=== PATIENT | male | born 1950 | race Caucasian/White ===

== ENCOUNTER 2024-07-23 06:21 | Day surgery (SDC) | payer OTHER, SELFPAY | END 2024-07-23 11:36 | disposition home or self-care (01) | LOC: GI 06:21 | PROVIDERS: ATTENDING PHYSICIAN Internal Medicine Gastroenterology | DX: Z12.11 Encounter for screening for malignant neoplasm of colon (principal); K63.5 Polyp of colon; K57.30 Diverticulosis of large intestine without perforation or abscess without bleeding; K64.0 First degree hemorrhoids; Z86.0100 Personal history of colon polyps, unspecified | CPT/HCPCS: 45380; 88305 ==

== ENCOUNTER 2024-12-09 17:59 | Emergency (ER) | payer OTHER, SELFPAY ==
[2024-12-09 18:01] VITALS: BP 168/100
[2024-12-09 18:18] LABS: % Basophils 0.4 % (0-2); % Eosinophils 1.8 % (0-6); % Immature Granulocytes 0.4 % (0-0.5); % Lymphocytes 26.1 % (20.5-51.1); % Monocytes 7.8 % (1.7-9.3); % Neutrophils 63.5 % (42.2-75.2); Absolute Eosinophils 0.1 10^3/uL (0-0.7); Absolute Monocytes 0.6 10^3/uL (0.1-0.6); Absolute Neutrophils 4.8 10^3/uL (1.4-6.5); Hematocrit 37.5 % (39.0-52.0); Hemoglobin 13.2 g/dL (13.0-18.0); Mean Corp Hgb Conc. 35.2 g/dL (33.0-37.0); Mean Corpuscular Hgb 32.7 pg (27.0-31.0); Mean Corpuscular Volume 92.8 fL (80.0-94.0); Mean Platelet Volume 9.3 fL (7.4-10.4); Nucleated Red Blood Cells % 0 % (-); Platelet Count 208 10^3/uL (130-400); Red Blood Cell Count 4.04 10^6/uL (4.70-6.10); Red Cell Dist. Width 13.2 % (11.5-14.5); White Blood Cell Count 7.6 10^3/uL (4.8-10.8)
[2024-12-09 18:25] VITALS: BMI 24.2
[2024-12-09 18:35] LABS: ALT (SGPT) 15 U/L (0-50); AST (SGOT) 25 U/L (17-59); Albumin 3.7 g/dl (3.5-5.0); Alkaline Phosphatase 69 U/L (38-126); Blood Urea Nitrogen 22 mg/dl (9-20); Calcium 8.4 mg/dl (8.4-10.2); Carbon Dioxide 24 mmol/L (22-30); Chloride 114 mmol/L (98-107); Estimated Creatinine Clearance 50 ml/min; Glucose 112 mg/dl (70-99); Lipase 213 U/L (23-300); Potassium 4.3 mmol/L (3.5-5.1); Sodium 141 mmol/L (135-145); Total Bilirubin 0.5 mg/dl (0.2-1.3); Total Protein 6.4 g/dl (6.3-8.2); eGFR > 60.00
[2024-12-09 19:48] VITALS: BP 171/84
[2024-12-09 19:55] LABS: Urine Albumin 4+ (Neg - Trace); Urine Bilirubin Negative (Negative); Urine Character Slightly Cloudy (Clear); Urine Color Yellow; Urine Glucose Negative (Negative); Urine Ketone Negative (Negative); Urine Leukocyte Negative (Negative); Urine Nitrite Negative (Negative); Urine Occult Blood 3+ (Negative); Urine Urobilinogen Negative (Neg - 1+)
[2024-12-09 20:06] LABS: Urine Amorphous Seen
[2024-12-09 20:07] LABS: Urine Bacteria Few (Negative)
[2024-12-09 20:42] VITALS: BP 157/91
--- NOTE | 2024-12-09 20:56 | ED.GENMED ---
History of Present Illness
General
Chief Complaint: Abdominal Pain
Source: patient and spouse
Time Seen by Provider: 12/09/24 19:24
History of Present Illness
History of Present Illness:
74-year-old male who presents after he had a 'lump' and pain in his right groin. Patient states it has been coming and going over some months but today it seemed to persist despite ibuprofen. The patient states he now feels much better and the
lump is gone. He states he does sometimes feel his left side as well. No vomiting. No fevers. No dysuria.
Past History
Past History
ED Past Medical History: CAD, Hypercholesterolemia and AL
ED Past Surgical History: Orthopedic
Social History
Tobacco: Former smoker
Phy Exam
Physical Exam
Physical Exam:
CONSTITUTIONAL Patient alert and oriented to person, place and time. Well-appearing. Vital signs reviewed.
HEAD atraumatic, normocephalic.
EYES eyelids normal to inspection, Extraocular muscles intact, Conjunctiva normal, Sclera normal.
NECK normal range of motion, Trachea midline, no jugular venous distention.
RESPIRATORY CHEST No respiratory distress noted, Chest expansion equal,
ABDOMEN abdomen nontender, Bowel sounds normal. No distention. Question small hernia to the left groin noted. Also suspect defect of the right groin but no hernia palpated. Testicles normal. Penis normal. Circumcised.
BACK normal inspection, no obvious deformities
UPPER EXTREMITY range of motion normal, Motor strength normal, no cyanosis, no edema.
LOWER EXTREMITY range of motion normal, Motor strength normal, no cyanosis, no edema.
NEURO Speech normal, No focal motor deficits, Ashley coma scale 15, Memory normal, Cranial Nerves intact to screening exam.
SKIN skin warm, dry, and normal in color.
Course
Orders/Labs/Results
Orders:
Orders
12/09/24 18:10
Complete Blood Count/With Diff Urgent
Comprehensive Metabolic Panel Urgent
Lipase Urgent
12/09/24 19:45
Urinalysis Reflex To Culture Urgent
Date Specimen was Collected: 12/09/24
Time Specimen was Collected: 19:44
Urine Microscopic Reflex Cult Urgent
Abnormal Lab Results
12/09/24 12/09/24
18:10 19:45
RBC 4.04 L 10^6/uL
(4.70-6.10)
Hct 37.5 L %
(39.0-52.0)
MCH 32.7 H pg
(27.0-31.0)
Chloride 114 H mmol/L
(98-107)
BUN 22 H mg/dl
(9-20)
Glucose 112 H mg/dl
(70-99)
Ur Occult Blood Reflex 3+ A
(Negative)
Urine RBC 11-15 A /HPF
(0-2)
Urine Bacteria (Reflex) Few A
(Negative)
Urine Albumin (Reflex) 4+ A
(Neg - Trace)
12/09/24 18:10
12/09/24 18:10
Vital Signs
Initial and Last Documented VS:
Initial Vital Signs
Temp Pulse Resp BP Pulse Ox
98.5 F 74 16 168/100 98
12/09/24 18:01 12/09/24 18:01 12/09/24 18:01 12/09/24 18:01 12/09/24 18:01
Last Documented Vital Signs
Temp Pulse Resp BP Pulse Ox
98.5 F 68 20 157/91 98
12/09/24 18:01 12/09/24 20:42 12/09/24 20:42 12/09/24 20:42 12/09/24 20:42
MDM/Problems Addressed
Differential Diagnosis Includes:
Kidney stone, appendicitis, prostatitis, UTI, hernia
MDM/Problems Addressed:
Inguinal hernia, uncontrolled hypertension, microscopic hematuria
*Pulse Oximetry
Patient hypoxic: no
*Critical Care Note
Total Time (30-74mins, 75-104mins- exclusive of procedures): Not Applicable
Data Reviewed
Source: patient and spouse (Spouse states there was definitely a noticeable and sizable lump in the groin during this pain)
Further Testing Considered But Not Given:
Consider CT but patient symptoms have completely resolved
Patient Management
Escalation/DeEscalation of care consider admission/obs:
Symptoms completely resolved. His exam is normal. Suspect an hernia that currently is reduced. Will refer to PCP and surgery for follow-up. Does have microscopic hematuria which she will follow-up with his PCP. Patient counseled on reasons for
return and also how to reduce the hernia if it were to herniate
ED Attending Note
-
Portions of this chart may have been created with voice recognition software.� Occasional wrong word or��sound alike� substitutions may have occurred due to the inherent limitations of voice recognition software.
Discharge Plan
Departure
Patient Disposition: Home (Routine Discharge)
Date of Disposition: 12/09/24
Time of Disposition: 20:59
Patient with high blood pressure during this ER visit?: Yes
Discharge Problem:
Abdominal pain, Inguinal hernia, Asymptomatic microscopic hematuria
Instructions: Groin hernias, Abdominal Pain, BLOOD PRESSURE
Prescriptions:
No Action
aspirin 81 MG tablet,delayed release (DR/EC)
81 mg PO DAILY
isosorbide mononitrate 30 MG tablet extended release 24 hr
30 mg PO DAILY Qty: 90 3RF
clopidogrel 75 MG tablet
75 mg PO DAILY Qty: 90 3RF
amlodipine 5 MG tablet
5 mg PO DAILY Qty: 90 3RF
nitroglycerin 0.4 MG tablet, sublingual
0.4 mg sublingual [id number] PRN (Reason: chest pain) Qty: 30 2RF
famotidine 40 MG tablet
40 mg PO DAILY Qty: 90 3RF
lisinopril [Prinivil] 10 MG tablet
10 mg PO DAILY Qty: 90 3RF
atorvastatin 80 MG tablet
80 mg PO QPM Qty: 0 0RF
metoprolol succinate 25 MG tablet extended release 24 hr
25 mg PO DAILY Qty: 30 0RF
Referrals:
Jerad Machuca MD [Active] -
Brice Grissom MD [Family Provider] -
Activity Restrictions/Additional Instructions:
Please avoid lifting anything heavy or straining in any way as discussed. If a hernia protrudes, you can lay flat and try to reduce yourself. If you have persistent pain or unable to reduce the hernia please return to the emergency department. In
addition, return for fevers, vomiting, worsening pain, back pain or any other concerns. Please see your doctor or general surgery in the next 1 week for follow-up and reevaluation
In addition, you did have a small amount of blood in your urine. Please see your doctor within the next week to reevaluate your urinalysis to ensure the blood is cleared or to institute further workup if necessary
Interventions
Interventions:
*Risk Screen - Suicide Last Done: 12/09/24 18:21
*General Assessment Last Done: 12/09/24 18:21
*Neglect/Abuse Screening Last Done: 12/09/24 18:21
*ED- Fall Risk Assessment Last Done: 12/09/24 18:20
*ED COVID-19 Vaccine History Last Done: 12/09/24 18:20
JM-Jmlmiu-Cofshysbgw Assessment Last Done: 12/09/24 19:31
Discharge Date and Time
Print Language: YI
== END 2024-12-09 21:15 | disposition home or self-care (01) ==
LOC: EMR 17:59
PROVIDERS: EMERGENCY PHYSICIAN Emergency Medicine; FAMILY PHYSICIAN Internal Medicine Cardiovascular Disease
DX: R10.31 Right lower quadrant pain (principal); K40.90 Unilateral inguinal hernia, without obstruction or gangrene, not specified as recurrent; R31.21 Asymptomatic microscopic hematuria; I25.10 Atherosclerotic heart disease of native coronary artery without angina pectoris; E78.00 Pure hypercholesterolemia, unspecified; I10 Essential (primary) hypertension; Z87.891 Personal history of nicotine dependence
CPT/HCPCS: 99283; 80053; 81003; 81015; 83690; 85025

== ENCOUNTER 2025-03-07 06:07 | Day surgery (SDC) | payer OTHER, SELFPAY ==
[2025-02-27 13:53] VITALS: BMI 24.9
[2025-03-07] VITALS (9 sets, daily range): BP systolic 109–162; BP diastolic 71–98; BMI 24.9
[2025-03-07] MEDS: TYLENOL 1000 MG PO (07:58)
[2025-03-07] MEDS: NORMOSOL-R/PLASMALYTE-A 1000 IV (07:58)
--- NOTE | 2025-03-07 08:13 | W.SUR.PREOP ---
Pre-Operative Surgical Note
-
I have examined this patient prior to the performance of the scheduled procedure.
The patient's condition is unchanged from the time of the current History and
Physical and the patient is able to undergo the scheduled procedure.
--- NOTE | 2025-03-07 08:13 | HP.FOC2 ---
Focused History & Physical
Chief Complaint
HPI:
Chief Complaint: Bilateral inguinal hernias
HPI / Indication for Planned Procedure: This is a 74-year-old male with symptomatic right inguinal hernia and a possible left inguinal hernia noted on exam. Will plan for robotic bilateral inguinal hernia repair with mesh.
Relevant Past Medical History: Negative
Relevant Social History: Negative
Relevant Family History: Negative
Relevant Past Surgical History: Negative
Review of Systems
Review of Pertinent Systems: All Systems Negative
Medication
See Medication form for detailed medications: Yes
Medication List (including Herbals & OTC):
aspirin 81 mg tablet,delayed release 81 mg PO DAILY 03/06/13
amlodipine 5 mg tablet 5 mg PO DAILY #90 tabs 03/07/13
metoprolol succinate 25 mg tablet,extended release 24 hr 25 mg PO DAILY #30 tabs 08/13/20
allopurinol 100 mg tablet 100 mg PO DAILY 02/28/25
atorvastatin 80 mg tablet 80 mg PO DAILY 02/28/25
ibuprofen 200 mg tablet 200 - 600 mg PO Q6H PRN pain 02/28/25
losartan 50 mg tablet 50 mg PO DAILY 02/28/25
Medications Reviewed: Yes
Allergies and Reactions
Patient has Allergies: No
Noted Allergies and Reactions:
Allergy/AdvReac Type Severity Reaction Status Date / Time
No Known Allergies Allergy Verified 03/07/25 07:38
Pertinent Physical Exam
All Other Systems: Negative
Head/Neck: Normal
Diagnosis / Assessment
This is a 74-year-old male with symptomatic right inguinal hernia and a possible left inguinal hernia noted on exam.
Plan / Procedure
Will plan for robotic bilateral inguinal hernia repair with mesh.
Anesthesia/Sedation to be done by Anesthesia Provider: Yes
--- NOTE | 2025-03-07 10:42 | OR.RPT ---
Operative Report
Operative Report
Patient Name: Addison Lopez
: 1950
Date of Operation: 03/07/2025
Preoperative Diagnosis: Bilateral inguinal hernias
Postoperative Diagnosis: Bilateral inguinal hernias, right femoral hernia
Procedure(s):
1. Robotic Inguinal Hernia Repair with mesh, bilateral (JEANNETTE approach)
2. Excision of lesion of a spermatic cord lipoma x2 (26317�59)
3. Robotic right femoral hernia repair with mesh
Surgeon(s):
Dr. Hagan
Appliance Servicer(s):
YAHIR Nolasco
Anesthesia: General
Estimated Blood Loss: 11 cc
Urine Output: None
Drains/Lines/Implants: Large 3D Max Bard mid weight uncoated polypropylene mesh x 2
Specimens: Bilateral cord lipomas
Indication for surgery: The patient has a history of groin pain and noted on exam to have bilateral inguinal Hernia(s). Following review of therapeutic options they have elected to undergo a minimally invasive repair.
Findings at the time of surgery:
The patient was noted to have bilateral indirect inguinal hernias, cord lipomas and a right femoral hernia. After achieving the critical view of the MPO, bilaterally the preperitoneal spaces were reinforced with large BARD 3D max mid-weight mesh x2.
Details of the operation:
The patient was brought to the Operating Room and placed in the supine position with the arms tucked. IV antibiotics were infused and Venodyne stockings placed. Following uneventful induction of general endotracheal anesthesia, an orogastric tube
was placed. The abdomen was prepped and draped in the usual sterile fashion. The abdomen was entered using a Veress technique which required 1 pass(es), pneumoperitoneum to 15 mmHg was obtained without difficulty. An 8mm trochar was passed through
the abdominal wall roughly 20 cm cephalad to the inguinal canal. We then confirmed that no inadvertent injury was made while passing the trocar or Veress needle. We then placed two additional 8 mm ports in the left upper and right upper quadrants.
We then docked the robot with a Prograsper in the left hand port and monopolar scissors in the right. The patient was noted to have bilateral inguinal hernias. We then began by creating a flap at the level of the ASIS laterally on the right side
working our way medially to the medial umbilical fold. Staying onto the peritoneum we were able to circumferentially dissect around the hernia sac and and peel it off of the underlying spermatic cord and testicular vessels, taking care to preserve
them. Medially we identified the midline pubis as well as Kirill's ligament and ensured to dissect 2 cm below the pubic rim over the bladder. After exposure of the entire myopectineal orifice we identified and reduced: A medium sized indirect
inguinal hernia, no direct inguinal hernia, a small femoral hernia, a medium cord lipoma, which was removed. The right femoral hernia was somewhat challenging as the patient had an accessory obturator running over the lacunar ligament medially and
of course the femoral vein laterally however we were able to gently tease the incarcerated fat without injury to these vessels. We then repeated the exact same dissection on the contralateral/left side. After exposure of the entire myopectineal
orifice we identified and reduced a small sized indirect inguinal hernia, no direct or femoral components, and a small cord lipoma which was removed.
We then fixated large 3D max mesh with a 2-0 Vicryl stitch at coopers medially and superior laterally x 2. The flaps were then closed with a running 2-0 barbed monocryl suture ensuring that the tails were cut flush with the medial fat pad so that
no barbs were exposed. During the closure of the flaps an Angiocath was inserted and 20 cc of quarter percent Marcaine was instilled. The area in the flap cavity was then evacuated of air confirming that the mesh was flush and there were no folds.
All needles and instruments were then removed and the robot was undocked. The abdomen was then desufflated, and pneumoperitoneum evacuated. All skin sites were then closed with 4-0 Monocryl followed by Dermabond. Counts were correct and overall,
the patient tolerated the procedure well and was taken to the Recovery Room postoperatively in stable condition.
I was the attending physician and performed the procedure with assistance of the SYNTHETIC STAPLE EXTRUDER above. I was present for all portions of the case
Roderick Hagan MD
[2025-03-07] MEDS: DILAUDID 0.25 MG IV ×2 (11:00→11:08)
--- NOTE | 2025-03-08 11:11 | W.IMMPOSTOP ---
Surgical Immed Post Op Note
-
Primary Surgeon: Roderick Hagan MD
Assisting Surgeon: None
Pre-op Diagnosis: Bilateral inguinal hernias
Post-op Diagnosis: Bilateral inguinal hernias, right femoral hernia
Procedure Performed:
1. Robotic Inguinal Hernia Repair with mesh, bilateral (JEANNETTE approach)
2. Excision of lesion of a spermatic cord lipoma x2 (33798�59)
3. Robotic right femoral hernia repair with mesh
Anesthesia Type: General
Specimen / Cultures: Bilateral cord lipomas
Estimated Blood Loss: 11 cc
Complications: None
Operative Findings: The patient was noted to have bilateral indirect inguinal hernias, cord lipomas and a right femoral hernia. After achieving the critical view of the MPO, bilaterally the preperitoneal spaces were reinforced with large BARD 3D
max mid-weight mesh x2.
== END 2025-03-07 12:27 | disposition home or self-care (01) ==
LOC: SDS 06:07
PROVIDERS: ATTENDING PHYSICIAN Surgery; FAMILY PHYSICIAN Family Medicine
DX: K40.20 Bilateral inguinal hernia, without obstruction or gangrene, not specified as recurrent (principal); K41.90 Unilateral femoral hernia, without obstruction or gangrene, not specified as recurrent
CPT/HCPCS: 49650; 36415; 88304; 93005; C1781